=== PATIENT | female | born 1995 | race Caucasian/White ===

== ENCOUNTER 2022-11-25 09:02 | Outpatient (REF) | payer OTHER, SELFPAY ==
--- NOTE | ~2022-11-25 | US_ITS ---
EXAMINATION: US DIAGNOSTIC ULTRASOUND BREAST, LEFT CLINICAL INFORMATION: 27-year-old female with 1-2 month history burning left breast pain lower outer quadrant. Mild fullness noted at clinical exam. Patient notes no palpable mass. No discharge. No erythema. No prior breast imaging. COMPARISON: None (current study represents initial baseline exam). TECHNIQUE: Ultrasound left breast is targeted to the 2:00 through 6:00 region using grayscale imaging and color Doppler without and with harmonics. FINDINGS: There is no focal suspicious finding. There is no cystic or solid mass, architectural abnormality, duct ectasia, or edema in the soft tissue planes. No skin thickening. Results are discussed with the patient at time of visit. US/US breast LT limited IMPRESSION: Normal study. 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 This patient's information was entered into a reminder system with a target due date for their next mammogram.
== END 2022-11-25 09:03 | disposition home or self-care (01) ==
LOC: HO.MAMMO 09:02
PROVIDERS: PCP Internal Medicine; Visit Provider Internal Medicine
DX: N63.23 Unspecified lump in the left breast, lower outer quadrant (principal)
CPT/HCPCS: 76642